=== PATIENT | male | born 1960 | race Native Hawaiian/Other Pacific Islander ===

== ENCOUNTER 2018-01-16 20:04 | Emergency (ER) | payer MEDICAID ==
[~2018-01-16] VITALS: Ht 165.1 cm; Wt 65.8 kg
[2018-01-16 20:07] VITALS: BP 148/120
[2018-01-16] MEDS ORDERED: LIDOCAINE HCL/PF 1% 30 ML VIAL TP ONE (21:00)
[2018-01-16] MEDS ORDERED: LIDOCAINE 1% INJ 50 ML MDV IJ ONE (21:12)
[2018-01-16] MEDS ORDERED: LIDOCAINE /MPF 1% VIAL 5 ML VIAL ONE (21:16)
== END 2018-01-16 22:33 | disposition home or self-care (01) ==
LOC: ER 20:06
DX: S01.511A Laceration without foreign body of lip, initial encounter (principal); S00.33XA Contusion of nose, initial encounter; Z87.442 Personal history of urinary calculi; Z90.49 Acquired absence of other specified parts of digestive tract; Z98.890 Other specified postprocedural states; W01.0XXA Fall on same level from slipping, tripping and stumbling without subsequent striking against object, initial encounter; Y93.89 Activity, other specified; Y92.89 Other specified places as the place of occurrence of the external cause; Y99.8 Other external cause status
CPT/HCPCS: 12011; 99283; J3490 ×2; A4606; Z7610

== ENCOUNTER 2018-05-25 16:14 | Emergency (ER) | payer SELFPAY ==
[~2018-05-25] VITALS: Ht 165.1 cm; Wt 68.0 kg
--- NOTE | 2018-05-25 16:14 | NUR ---
PT BIB SELF C/O FEVER, COUGH BODY ACHES X 4 DAYS, DIARRHEA X 3 DAYS, PT IS AAOX4, NOT IN RESPIRATORY DISTRESS, V/S STABLE, KEPT RESTED AND COMFORTABLE, HOOKED TO MONITOR.
--- NOTE | 2018-05-25 17:25 | NUR ---
SEEN AND EXAMINED BY ART ALEJANDRA
[2018-05-25] MEDS: IV NS 0.9% 1,000 ML BAG IV ONE (17:30)
[2018-05-25] MEDS: ONDANSETRON HCL/PF 4 MG/2 ML VIAL IVP ONE (17:30)
--- NOTE | 2018-05-25 17:30 | NUR ---
IV LINE INSERTED, LABS DRAWNED AND SENT TO LAB. AWAITING RESULTS.
[2018-05-25] MEDS ORDERED: ONDANSETRON HCL/PF 4 MG/2 ML VIAL ONE (17:33)
[2018-05-25] MEDS ORDERED: ACETAMINOPHEN ES 500 MG TABLET ONE (17:33)
[2018-05-25] MEDS ORDERED: IBUPROFEN 600 MG TABLET PO ONE (17:33)
[2018-05-25] MEDS: IBUPROFEN 600 MG TABLET PO ONE (17:46)
[2018-05-25] MEDS: ACETAMINOPHEN ES 500 MG TABLET PO ONE (17:46)
--- NOTE | 2018-05-25 18:00 | NUR ---
BAND SAW OPERATOR CAKE CUTTING AT BEDSIDE FOR XRAY.
[2018-05-25] MEDS ORDERED: AZITHROMYCIN 250 MG TABLET ONE (19:04)
[2018-05-25] MEDS: AZITHROMYCIN 250 MG TABLET PO ONE (19:17)
--- NOTE | 2018-05-25 19:17 | NUR ---
IV removed. Catheter intact and site benign. Pressure and 4x4 applied to site. No bleeding noted. Patient discharged to home in stable condition. Written and verbal after care instructions given. Patient verbalizes understanding of instruction.
[2018-05-25 19:18] VITALS: BP 115/58
== END 2018-05-25 19:19 | disposition home or self-care (01) ==
LOC: ER 16:22
DX: J18.9 Pneumonia, unspecified organism (principal); Z90.49 Acquired absence of other specified parts of digestive tract; Z87.442 Personal history of urinary calculi; Z98.890 Other specified postprocedural states
CPT/HCPCS: 71045; 87804 ×2; 96361; 96374; 99284; A4606; J2405; J7030; 87400

== ENCOUNTER 2018-12-25 05:47 | Emergency (ER) | payer MEDICAID ==
[~2018-12-25] VITALS: Ht 167.6 cm; Wt 75.3 kg
[2018-12-25] MEDS ORDERED: IV NS 0.9% 500 ML BAG IV ONE (06:00)
--- NOTE | 2018-12-25 06:11 | NUR ---
KIET FROM HOME. TO ER BED 9. AAOX4. NO RESP DISTRESS NOTED, BREATHING EVEN AND UNLABORED. BROUGHT IN FOR A SUNCOPAL EPISODE. PT REPORTS THAT HE WAS ON THE PHONE WHEN HE STARTED TO FEEL HOT, SWEATY, LIGHTHEADED AND BLACKED OUT. PT DENIES CP. DENIES ABDOMINAL PAIN. DENIES NVD. PT PLACE ON MONITOR. POSTURAL BP DONE AND NEGATIVE FOR ORTHOSTATIC HYPOTENSION. MD WAS AT BEDSIDE FOR EVAL. ORDERS RECEIVED. EKG DONE AT BEDSIDE BY EMT. IV LINE OBTAINED ON R AC 18G. BLOOD DRAWN AND GIVEN TO MANAGER ED AT BEDSIDE.
[2018-12-25 06:12] LABS: BASOPHILS # (AUTO) 0.1 /CMM (0.0-0.2); EOSINOPHILS % (AUTO) 2.5 % (0.0-6.0); HEMATOCRIT 48 % (39-51); HEMOGLOBIN 16.4 g/dL (13.5-17.5); LYMPHOCYTES # (AUTO) 2.5 /CMM (0.8-4.8); MEAN CORPUSCULAR HGB CONC 34 g/dl (31.0-36.0); MEAN CORPUSCULAR VOLUME 87 fL (80-96); MONOCYTES # (AUTO) 0.5 /CMM (0.1-1.30); MONOCYTES % (AUTO) 7.3 % (2.0-12.0); NEUTROPHILS # (AUTO) 3.4 /CMM (1.8-8.9); NEUTROPHILS % (AUTO) 51.2 % (43.0-81.0); PLATELET COUNT (AUTO) 169 /CMM (150-450); WHITE BLOOD COUNT (AUTO) 6.6 K/uL (4.3-11.0)
[2018-12-25 06:22] LABS: CALCIUM, SERUM 8.7 mg/dL (8.5-10.1); CARBON DIOXIDE 27 mmol/L (21-32); CHLORIDE 105 mmol/L (98-107); GLUCOSE 129 mg/dL (74-106); POTASSIUM 3.6 mmol/L (3.5-5.1); SODIUM SERUM 141 mmol/L (136-145); UREA NITROGEN, BLOOD 12 mg/dL (7-18)
[2018-12-25 06:29] LABS: ALANINE AMINOTRANSFERASE 36 U/L (12-78); ALBUMIN 3.6 g/dL (3.4-5.0); ALKALINE PHOSPHATASE 61 U/L (46-116); ASPARTATE AMINOTRANSFERASE 17 U/L (15-37); BILIRUBIN,DIRECT 0.1 mg/dL (0.0-0.2); BILIRUBIN,TOTAL 0.3 mg/dL (0.2-1.0); TOTAL PROTEIN, SERUM 7.1 g/dL (6.4-8.2)
--- NOTE | 2018-12-25 07:38 | NUR ---
Patient discharged to home in stable condition. Written and verbal after care instructions given. Patient verbalizes understanding of instruction.IV removed. Catheter intact and site benign. Pressure and 4x4 applied to site. No bleeding noted. Pt ambulatory with a steady gait
[2018-12-25 07:39] VITALS: BP 117/79
== END 2018-12-25 07:39 | disposition home or self-care (01) ==
LOC: ER 05:48
DX: R55 Syncope and collapse (principal); R07.89 Other chest pain; R42 Dizziness and giddiness; Z87.442 Personal history of urinary calculi; Z90.49 Acquired absence of other specified parts of digestive tract; Z98.890 Other specified postprocedural states
CPT/HCPCS: 36415; 71045; 80048; 80076; 84484; 85025; 93005; 99284; J7040